=== PATIENT | male | born 1960 | race Caucasian/White ===

== ENCOUNTER → 2022-06-12 | Outpatient (CLI) | payer BC ==
--- NOTE | 2022-06-13 09:49 | MR ---
EXAMINATION TYPE: MR Prostate wo/w con DATE OF EXAM: 06/12/2022 COMPARISON: None. IMAGE QUALITY: Satisfactory. INDICATION: ELEVATED PSA PSA: 4.60 ng/ml on May 14, 2022 Recent Biopsy and Date: n/a Pathology Report (If Applicable): n/a TECHNIQUE: Examination was performed using a 3T MRI without an endorectal coil. Multiparametric imaging was perf ormed with T2 mutliplanar sequences, axial diffusion weighted imaging and dynamic contrast enhanced i maging, utilizing 7 mL intravenous Gadavist gadolinium contrast. FINDINGS: PROSTATE VOLUME: 3.7 cm SI x 3.4 cm AP x 4.8 cm LR Vol= 31.62 cc PSA DENSITY: 0.15 ng/ml/cc Peripheral zone shows no areas of diminished indistinct hypointensity on ADC mapping. No areas of res tricted diffusion seen. Central transitional zone is heterogeneous without suspicious areas of T2 hyp ointensity. Prostate capsule maintained. Foraminal vesicles appear within normal limits. Urinary bladder unremarkable without wall thickening or trabeculation. No suspicious bowel dilatation. No pelvic ascites. Metallic hardware from right hip arthroplasty caus es some streak artifact. Degenerative change left hip is partially imaged. IMPRESSION: Mildly enlarged prostate gland. A focus of clinically significant cancer is not identified. Highest Assessment Category: 1 MRI Stage: T0 N0 M0 based on review of pelvic images. False negative rates for MRI range from 5-20% depending on risk profile. Assessment Categories: 1 ? Very low (clinically significant cancer is highly unlikely to be present) 2 ? Low (clinically significant cancer is unlikely to be present) 3 ? Intermediate (the presence of clinically significant cancer is equivocal) 4 ? High (clinically significant cancer is likely to be present) 5 ? Very high (clinically significant cancer is highly likely to be present)
== END | disposition home or self-care (01) ==
LOC: RADMRIMAIN 08:31
PROVIDERS: ATTEND Urology
DX: N40.0 Benign prostatic hyperplasia without lower urinary tract symptoms (principal)
CPT/HCPCS: 72197; A9585